=== PATIENT | male | born 1965 | race Caucasian/White ===

== ENCOUNTER 2017-12-14 13:36 | Emergency (ER) | payer OTHER ==
[~2017-12-14] VITALS: Ht 180.3 cm; Wt 127.0 kg
[~2017-12-14 13:36] MED LIST: ASPIR 8181 MG PO; BIAXIN 500 MG500 M2 PO; CARAFATE 1 GM TA1 G1 PO; DIAZEPAM 5 MG5 M1 PO; FERREX 150150 MG PO; FLAGYL500 MG PO; LIPITOR 20 MG T20 M1 PO; NORCO 5-325 TA1 EACH PO; PREDNISONE50 MG PO; PROTONIX40 M4 PO; TETRACYCLINE H500 MG PO; TOPROL XL25 MG PO; TYLENOL325 MG PO
[2017-12-14 14:14] LABS: ABSOLUTE NEUTROPHILS 7.5 thou/uL (1.4-8.2); EOSINOPHILS 2.2 % (0.0-3.0); HEMATOCRIT 45.4 % (42.0-52.0); LYMPHOCYTES 22.5 % (24.0-44.0); MCH 33.7 pg (26.0-34.0); MCHC 35.2 g/dL (28.0-37.0); MCV 95.7 fL (80.0-100.0); MONOCYTES 7.7 % (1.0-8.0); PLATELET COUNT 254 thou/uL (150-400); POLYS 66.6 % (36.0-66.0); RBC 4.75 mil/uL (4.50-6.00); RDW 13.1 % (10.5-14.5); WBC 11.3 thou/uL (4.0-11.0)
[2017-12-14 14:19] LABS: CALCIUM 9.7 mg/dL (8.5-10.1); CREATININE 0.9 mg/dL (0.7-1.3); POTASSIUM 4.2 mmol/L (3.5-5.1)
[2017-12-14 14:25] LABS: ALBUMIN 3.8 g/dL (3.4-5.0); TOTAL BILIRUBIN 0.3 mg/dL (<0.1-1.0); TOTAL PROTEIN 7.9 g/dL (6.4-8.2)
[2017-12-14 15:01] LABS: URINE BILIRUBIN NEGATIVE (Negative); URINE BLOOD NEGATIVE (Negative); URINE CLARITY CLEAR; URINE COLOR YELLOW; URINE GLUCOSE-RANDOM* NEGATIVE (Negative); URINE KETONES NEGATIVE (Negative); URINE LEUKOCYTES NEGATIVE (Negative); URINE NITRITE NEGATIVE (Negative); URINE PROTEIN (DIPSTICK) NEGATIVE (Negative); URINE UROBILINOGEN 0.2 E.U./dl (0.2-1.0)
[2017-12-14] MEDS ORDERED: NABUMETONE 750750 M1 PO (15:48)
[2017-12-14] MEDS ORDERED: ORPHENADRINE C100 M2 PO (15:49)
== END 2017-12-14 17:38 | disposition short-term general hospital (02) ==
LOC: ER 13:36
PROVIDERS: Physician Assistant
DX: M54.41 Lumbago with sciatica, right side (principal); R15.9 Full incontinence of feces; I25.10 Atherosclerotic heart disease of native coronary artery without angina pectoris; E78.5 Hyperlipidemia, unspecified; Z88.0 Allergy status to penicillin; Z88.6 Allergy status to analgesic agent; Z87.891 Personal history of nicotine dependence